=== PATIENT | male | born 1945 | race Asian ===

== ENCOUNTER 2017-07-13 08:15 | Outpatient (RCR) | payer OTHER | END 2017-08-05 | disposition home or self-care (01) | LOC: PTY 08:15 | DX: M25.511 Pain in right shoulder (principal); G89.29 Other chronic pain ==

== ENCOUNTER 2017-08-09 13:34 | Outpatient (RCR) | payer OTHER | END 2017-09-04 | disposition home or self-care (01) | LOC: PTY 13:34 | DX: M25.511 Pain in right shoulder (principal); G89.29 Other chronic pain ==

== ENCOUNTER 2017-09-11 15:15 | Outpatient (RCR) | payer OTHER | END 2017-10-05 | disposition home or self-care (01) | LOC: PTY 15:15 | DX: M25.511 Pain in right shoulder (principal); G89.29 Other chronic pain ==

== ENCOUNTER 2017-10-12 16:00 | Outpatient (RCR) | payer OTHER | END 2017-11-04 | disposition home or self-care (01) | LOC: PTY 16:00 | DX: M25.511 Pain in right shoulder (principal); G89.29 Other chronic pain ==